=== PATIENT | male | born 1945 ===

== ENCOUNTER → 2023-11-18 10:45 | Outpatient (BNVA) | payer MEDICARE, SELFPAY | PROVIDERS: Visit Provider Nurse Practitioner Gerontology | DX: R33.8 Other retention of urine (principal) | CPT/HCPCS: 99205 ==

== ENCOUNTER 2023-11-21 05:26 | Emergency (ER) | payer MEDICARE, SELFPAY ==
[2023-11-21] VITALS (8 sets, daily range): BP systolic 153–181; BP diastolic 77–90; PULSE 62–72; RESP 24; TEMP 35.4–36.4; O2SAT 97
--- NOTE | 2023-11-21 06:05 | W.ED.GENAD ---
Discharge Plan Disposition Patient Disposition: Home Condition: Good Discharge Details Clinical Impression: Acute urinary retention Primary Care Provider: Unknown,Unknown ED Provider: Brown Parham Home Meds and New Rx's Prescriptions: New cephalexin 500 mg capsule 500 mg PO QID 7 Days Qty: 28 0RF No Action tamsulosin [Flomax] 0.4 mg capsule 0.4 mg PO DAILY Qty: 30 0RF Discharge Instructions Instructions: Urinary Retention, Urinary Tract Infection, Adult ED Additional Instructions: Please continue to take the Flomax, take the antibiotic as prescribed. Please follow-up closely with Dr. Mathias. If you notice any worsening of your symptoms, or any new symptoms such as vomiting, diarrhea, fever, chills, shortness of breath, chest pain, numbness, weakness, or fainting , please return immediately to the emergency department for reevaluation. Please follow up with your primary care provider as soon as possible for reassessment and reevaluation. As always, it was a pleasure participating in your medical care today. Referrals: Nilay Mathias MD [ [facility] STAFF PHYSICIAN] - [facility] General Date/Time Provider Initiated Documentation: 11/21/23 05:27. HPI Narrative: 78-year-old male with a past medical history of recent urinary obstruction leading to Escobar catheter placement at [place] emergency department. It was then for around 10 days and subsequently removed on 11/18/2023. He was started on Flomax, and has been taking this as directed. He states that everything was going fine until around 7 hours ago at around 10 or 11 PM, when he had his last urinary movement. After that he has not been able to urinate at all and has had increased pain and pressure in the suprapubic region. He denies fever. He denies vomiting or diarrhea. He denies any trauma. He states that he has been taking his Flomax as directed. No other complaints at this time. He denies any recent blood in his urine. He states that he had a small amount of burning when his Escobar catheter was first removed, however this resolved shortly thereafter. Related Data Home Medications ?Medication ?Instructions ?Recorded ?Confirmed tamsulosin 0.4 mg capsule (Flomax) 0.4 mg PO DAILY #30 caps 11/18/23 11/21/23 cephalexin 500 mg capsule 500 mg PO QID 7 days #28 caps 11/21/23 Previous Rx's ?Medication ?Instructions ?Recorded tamsulosin 0.4 mg capsule (Flomax) 0.4 mg PO DAILY #30 caps 11/18/23 cephalexin 500 mg capsule 500 mg PO QID 7 days #28 caps 11/21/23 Allergies Allergy/AdvReac Type Severity Reaction Status Date / Time No Known Allergies Allergy Verified 11/21/23 06:04 General Stated Complaint: Urinary MAXIMILIANO: 3 Review of Systems All systems reviewed & are unremarkable except as noted in HPI and below Exam Narrative Exam Narrative: 1.Const: Well-nourished, Well-developed, appearing stated age 2.Eyes: PERRL, no conjunctival injection, and symmetrical lids. 3.ENT: Atraumatic external nose and ears. Moist MM. Neck: Symmetric, trachea midline, No thyromegaly. 4.CVS: +S1/S2, No murmurs or gallops. Peripheral pulses 2+ and equal in all extremities. Brisk capillary refill in all extremities. 5.RESP: Unlabored respiratory effort. Clear to auscultation bilaterally. No wheezes rales or rhonchi 6.GI: Palpable bladder in the suprapubic region. Tenderness in that area. No other tenderness throughout. Penile shaft is unremarkable, penile head unremarkable, no bladder leaking. No mass or abnormality otherwise. 7.MSK: Normocephalic/Atraumatic, Extremities w/o deformity or ttp No cyanosis or clubbing, Normal movement of all extremities 8.Skin: Warm, Dry. No rashes or lesions. 9.Neuro: box fabricator II-XII grossly intact. Sensation grossly intact, no focal neurologic deficits. 10.Psych: (AAO) x3. Appropriate mood and affect Course Vital Signs Vital signs: Vital Signs Temperature 35.4 C L 11/21/23 05:34 Pulse 72 11/21/23 05:34 Blood Pressure 181/90 H 11/21/23 05:34 Pulse Oximetry 97 11/21/23 05:34 Temperature 36.4 C L 11/21/23 05:54 Temperature Source Skin 11/21/23 05:54 Pulse 66 11/21/23 05:54 Respiratory Rate 24 11/21/23 05:54 Respiratory Effort Normal 11/21/23 05:54 Blood Pressure 181/90 H 11/21/23 05:34 Blood Pressure Position Sitting 11/21/23 05:34 Pulse Oximetry 97 11/21/23 05:54 Oxygen Delivery Method Room Air 11/21/23 05:54 Oxygen Flow Rate 0 11/21/23 05:34 Pain Level 9 11/21/23 05:54 Medical Decision Making 78-year-old male with a past medical history of recent urinary obstruction leading to Escobar catheter placement at [place] [facility]. It was then for around 10 days and subsequently removed on 11/18/2023. He was started on Flomax, and has been taking this as directed. He states that everything was going fine until around 7 hours ago at around 10 or 11 PM, when he had his last urinary movement. After that he has not been able to urinate at all and has had increased pain and pressure in the suprapubic region. He denies fever. He denies vomiting or diarrhea. He denies any trauma. He states that he has been taking his Flomax as directed. No other complaints at this time. He denies any recent blood in his urine. He states that he had a small amount of burning when his Escobar catheter was first removed, however this resolved shortly thereafter. Exam demonstrates an in distress male, palpable bladder, unremarkable genital exam. Concern for urinary obstruction. Will place Escobar catheter evaluate for infection and reassess. Patient has requested that we order a PSA for him, we will do this on his behalf as he states that has not yet been done by his primary care provider. 7:29 AM Escobar catheter was placed, 700 cc of urine was removed. Patient tolerated this well and had complete resolution of his symptomatology. Urinalysis was done and was positive for nitrites, 10-20 WBCs, and 3-5 red blood cells. Concern for UTI. Will start him on Keflex. He does have a follow-up appointment with Dr. Mathias in a week. Will recommend he continue taking Flomax, leave the Escobar in until he follows up with Dr. Mathias for his reassessment. We did draw PSA and they should have this value back by his return appointment. Recommend taking the antibiotic as prescribed. I have extensively reviewed the treatment plan and discharge instructions with the patient. I have addressed all patient concerns at this time. The patient was made aware of what symptoms to monitor for that would warrant a return to the emergency department. Discussed the plan with the patient, they demonstrate verbal understanding and agreement with our assessment and plan at this time. The documentation in this chart was dictated using [employer] dictation software. Please excuse any dictation errors. Quality:SDOH Health Related Social Needs: No Data to Display PFSH All Active Problems (Updated 11/21/23 @ 07:01 by Brown Parham DO) Acute urinary retention (Acute) Social History Smoking risk assessment performed?: No Housing: house Do you feel safe at home: Yes Do you feel safe in your relationship?: Yes
[2023-11-21 06:33] LABS: Bilirubin Negative (Negative); Blood Small (Negative); Clarity Sl Cloudy (Clear); Glucose Negative (Negative); Ketones Negative (Negative); Leukocyte Esterase Trace (Negative); Nitrite Positive (Negative); Specific Gravity 1.015 (1.005-1.025); Urobilinogen 0.2 mg/dL (Up to 0.2); pH 5.5 (5-8)
[2023-11-21 06:41] LABS: Bacteria Many HPF (Negative); Casts Negative LPF (Negative); Crystals Negative HPF (Negative); Epithelial Cells Rare HPF (Negative); Mucus Negative (Negative)
[2023-11-21 06:42] LABS: C & S Indicated? Yes
--- NOTE | 2023-11-21 07:15 | NUR.NOTE ---
Nursing Note: placed leg bag.
[2023-11-21] MEDS: Cephalexin 500 MG CAP, 4 CAPS/BTL PO (07:26)
[2023-11-21 20:16] LABS: PSA, Screening 12.8 ng/mL (<=6.5)
== END 2023-11-21 07:26 | disposition home or self-care (01) ==
PROVIDERS: Emergency Provider Student in an Organized Health Care Education/Training Program
DX: R33.8 Other retention of urine (principal); Z12.5 Encounter for screening for malignant neoplasm of prostate
CPT/HCPCS: 36415; 51702; 84153; 87077; 99283; 81003; 81015; 87086; 87186

== ENCOUNTER → 2023-11-26 10:24 | Outpatient (BNVA) | payer MEDICARE, SELFPAY | PROVIDERS: Visit Provider Nurse Practitioner Gerontology | DX: R33.8 Other retention of urine (principal) | CPT/HCPCS: 99215 ==